=== PATIENT | male | born 2000 | race Caucasian/White ===

== ENCOUNTER 2021-03-03 14:41 | Emergency (ER) | payer SELFPAY | END 2021-03-03 17:15 | disposition left against medical advice (07) | LOC: CSHERS 14:41 | DX: Z53.21 Procedure and treatment not carried out due to patient leaving prior to being seen by health care provider (principal) ==

== ENCOUNTER 2021-03-03 18:03 | Emergency (ER) | payer SELFPAY ==
[2021-03-03] MEDS ORDERED: Ondansetron ODT 4 MG TAB ONE (20:29)
[2021-03-04 20:25] LABS: SARS-CoV-2 PCR by NAA DETECTED (NotDetected)
== END 2021-03-03 21:38 | disposition home or self-care (01) ==
LOC: CSHERS 18:03
DX: U07.1 COVID-19 (principal); R11.2 Nausea with vomiting, unspecified; F17.290 Nicotine dependence, other tobacco product, uncomplicated
CPT/HCPCS: 36416; 93005; Q0162; U0003; U0005